=== PATIENT | male | born 2000 | race Asian ===

== ENCOUNTER 2018-10-20 16:19 | Emergency (ER) | payer BC ==
[~2018-10-20] VITALS: Ht 170.2 cm; Wt 78.5 kg
[2018-10-20 16:46] VITALS: Ht 170.2 cm; Wt 78.5 kg
[2018-10-20 18:47] VITALS: BP 147/81
== END 2018-10-20 18:47 | disposition home or self-care (01) ==
LOC: ED 16:19
DX: Z11.3 Encounter for screening for infections with a predominantly sexual mode of transmission (principal)